=== PATIENT | male | born 1955 | race Caucasian/White ===

== ENCOUNTER 2018-01-17 07:21 | Emergency (ER) | payer OTHER ==
--- NOTE | 2018-01-17 07:27 | EDM.PDOC ---
ED HPI GENERAL MEDICAL PROBLEM - General Stated Complaint: RT HAND Time Seen by Provider: 01/17/18 07:21 Source of Information: Reports: Patient, Other (coworker) History Limitations: Reports: No Limitations - History of Present Illness INITIAL COMMENTS - FREE TEXT/NARRATIVE: 62 y.o.w.m came to the ed with his Co worker to the ed after he cut himself on a sharp objet at work into his right hand. The wound was initially heavily bleeding, which improved on the way to the ed. Pt denies loss of function, refuses pain meds. No N/V/D or dizziness or any other acute medical issue. 154/ 93 RR 18 Pulse ox 99% on RA temp 36.8 Pulse 75 Onset Date: 01/17/18 Onset Time: 07:00 Duration: Minutes:, Constant Location: Reports: Upper Extremity, Right Quality: Reports: Ache, Burning, Dull Severity: Mild Improves with: Reports: Rest Worsens with: Reports: Movement Associated Symptoms: Reports: No Other Symptoms - Related Data Allergies Allergy/AdvReac Type Severity Reaction Status Date / Time No Known Allergies Allergy Verified 01/17/18 07:43 Home Meds: Home Meds Cephalexin [Keflex] 500 mg PO Q6H #40 cap 01/17/18 [Rx] Lisinopril 30 mg PO DAILY 01/17/18 [History] Review of Systems - Review of Systems Review Of Systems: See Below Constitutional: Reports: No Symptoms Eyes: Reports: No Symptoms Ears: Reports: No Symptoms Nose: Reports: No Symptoms Mouth/Throat: Reports: No Symptoms Respiratory: Reports: No Symptoms Cardiovascular: Reports: No Symptoms GI/Abdominal: Reports: No Symptoms Genitourinary: Reports: No Symptoms Musculoskeletal: Reports: No Symptoms Skin: Reports: Wound (left hypertenar, volar aspect) Neurological: Reports: No Symptoms Psychiatric: Reports: No Symptoms ED EXAM, GENERAL - Physical Exam Exam: See Below Exam Limited By: No Limitations General Appearance: Alert, WD/WN, Mild Distress Eye Exam: Bilateral Eye: Normal Inspection Ears: Normal External Exam Ear Exam: Bilateral Ear: Auricle Normal Nose: Normal Inspection Throat/Mouth: Normal Inspection Head: Atraumatic, Normocephalic Neck: Normal Inspection, Supple, Non-Tender, Full Range of Motion Respiratory/Chest: No Respiratory Distress Cardiovascular: Normal Peripheral Pulses Peripheral Pulses: 1+: Brachial (R) GI/Abdominal: Normal Bowel Sounds (Male) Exam: Deferred Rectal (Males) Exam: Deferred Back Exam: Normal Inspection, Full Range of Motion Extremities: Normal Range of Motion, Other (wound right hypertenar) Neurological: Alert, Oriented, CN II-XII Intact Psychiatric: Normal Affect, Normal Mood Skin Exam: Wound/Incision (LAC 5 cm right hypertenar) Lymphatic: No Adenopathy ED TRAUMA EXTREMITY PROCEDURES - Laceration/Wound Repair Right Hand Lac/Wound Length In cm: 5 Appearance: Linear, Clean Distal NVT: Neuro & Vascular Intact, No Tendon Injury Anesthetic Type: Local Local Anesthesia - Bupivicaine (Marcaine): 0.5% Plain Local Anesthetic Volume: 4cc Skin Prep: Providone-Iodine (Betadine) Saline Irrigation (cc's): 5 Exploration/Debridement/Repair: Wound Explored, In a Bloodless Field, Explored to Base Closed With: Sutures Suture Size: 4-0 # of Sutures: 8 Suture Type: Other (ethilon) Drain Placement: No Tetanus Status Addressed: Yes (given today) Complications: No Course - Vital Signs Text/Narrative:: 62 y.o.w.m came to the ed with his Co worker to the ed after he cut himself on a sharp objet at work into his right hand. The wound was initially heavily bleeding, which improved on the way to the ed. Pt denies loss of function, refuses pain meds. No N/V/D or dizziness or any other acute medical issue. 154/ 93 RR 18 Pulse ox 99% on RA temp 36.8 Pulse 75 PE: WNWD W M with a LAC at his right hand volar aspect. Procedure: Please see above. Impression: 4 Laceration right hypertenar (hand) Tx: TD, Rocephine Reexam: Improved Plan: D/C with instructions Last Recorded V/S: Last Vital Signs Temp 37.1 C 01/17/18 09:05 Pulse 68 01/17/18 09:05 Resp 17 01/17/18 09:05 BP 152/89 H 01/17/18 09:05 Pulse Ox 100 01/17/18 09:05 - Orders/Labs/Meds Orders: Active Orders 24 hr Category Date Time Status Vaccines to be Administered [RC] PER UNIT ROUTINE Care 01/17/18 07:59 Active Meds: Medications Discontinued Medications Generic Name Dose Route Start Last Admin Trade Name Ger PRN Reason Stop Dose Admin Ceftriaxone Sodium 1,000 mg 01/17/18 08:11 01/17/18 08:23 Rocephin IM 01/17/18 08:12 1,000 mg ONETIME ONE Administration Diphtheria/Tetanus/Acell Pertussis 0.5 ml 01/17/18 07:58 01/17/18 08:27 Adacel IM 01/17/18 07:59 0.5 ml .ONCE ONE Administration Departure - Departure Time of Disposition: 08:12 Disposition: Home, Self-Care 01 Condition: Good Clinical Impression: Laceration - Discharge Information Prescriptions: Cephalexin [Keflex] 500 mg PO Q6H #40 cap Instructions: Sutured Wound Care Referrals: PCP,Not In Area [Primary Care Provider] - Forms: ED Department Discharge Additional Instructions: Please apply neosporine to wound twice daily, please take Keflex as recommended , wound check in 2 days, suture removal in 7-10 days. Please come back to the ed if your symptoms get worse acutely. - My Orders Last 24 Hours: My Active Orders 01/17/18 07:59 Vaccines to be Administered [RC] PER UNIT ROUTINE - Assessment/Plan Last 24 Hours: My Active Orders 01/17/18 07:59 Vaccines to be Administered [RC] PER UNIT ROUTINE
[2018-01-17] MEDS ORDERED: Diphtheria,Pertussis(Acell),Tetanus Vaccine 0.5 ML SDV IM ONE (07:58)
[2018-01-17] MEDS ORDERED: cefTRIAXone 1,000 MG VIAL IM ONE (08:11)
== END 2018-01-17 09:05 | disposition home or self-care (01) ==
LOC: FB.ED 07:21
DX: S61.411A Laceration without foreign body of right hand, initial encounter (principal); X78.9XXA Intentional self-harm by unspecified sharp object, initial encounter
CPT/HCPCS: 12002; 90471; 90715; 96372; 99282; J0696